=== PATIENT | male | born 1940 ===

== ENCOUNTER 2024-09-21 16:22 | Outpatient (REF) | payer MEDICAID, SELFPAY ==
[2024-09-21 16:20] LABS: HCT 43.9 % (40.0-50.0); HGB 14.7 g/dL (13.5-17.5); MCH 32.1 pg (27.0-33.0); MCHC 33.5 % (32.0-36.0); MCV 96 fL (80-95); Platelet Count 338 10^3/uL (130-400); RBC 4.58 10^6/uL (4.36-5.78); RDW 13.4 % (11.8-14.1); RDW-SD 47.4 fL; WBC 10.52 10^3/uL (4.4-10.8)
[2024-09-21 18:40] LABS: Anion Gap 4.8 mmol/L (3-11); BUN 15 mg/dL (7-18); CO2 30.2 mmol/L (21.0-32.0); Calcium 9.6 mg/dL (8.5-10.1); Calculated LDL 158 mg/dL (<100); Chloride 105 mmol/L (98-107); Cholesterol 254 mg/dL (<200); Glucose 130 mg/dL (74-106); HDL Cholesterol 72 mg/dL (40-60); Potassium 5.8 mmol/L (3.5-5.1); Sodium 140 mmol/L (136-145); Triglyceride 123 mg/dL (<150)
== END 2024-09-21 16:23 | disposition home or self-care (01) ==
LOC: NCHCN 16:22
PROVIDERS: Visit Provider Family Medicine
DX: Z00.00 Encounter for general adult medical examination without abnormal findings (principal)
CPT/HCPCS: 80048; 80061; 85027

== ENCOUNTER 2024-10-05 12:43 | Outpatient (REF) | payer MEDICAID, SELFPAY ==
[2024-10-05 15:30] LABS: Anion Gap 6.7 mmol/L (3-11); BUN 16 mg/dL (7-18); CO2 27.3 mmol/L (21.0-32.0); CREATININE 0.9 mg/dL (0.70-1.30); Calcium 9.4 mg/dL (8.5-10.1); Chloride 104 mmol/L (98-107); Estimated GFR 83.18 (mL/min/1.73m2); Glucose 116 mg/dL (74-106); Potassium 4.9 mmol/L (3.5-5.1); Sodium 138 mmol/L (136-145)
[2024-10-05 15:45] LABS: Hemoglobin A1C 5.8 % (<5.7)
== END 2024-10-05 12:44 | disposition home or self-care (01) ==
LOC: NCHCN 12:43
PROVIDERS: Visit Provider Family Medicine
DX: E87.5 Hyperkalemia (principal); R73.9 Hyperglycemia, unspecified
CPT/HCPCS: 80048; 83036